=== PATIENT | female | born 1955 | race Asian ===

== ENCOUNTER 2024-10-04 13:22 | Emergency (ER) | payer MEDICAID ==
[~2024-10-04] VITALS: Ht 167.6 cm; Wt 59.0 kg
[2024-10-04 13:26] VITALS: O2SAT 100
[2024-10-04] MEDS: ONDANSETRON HCL 4MG/2ML INJ IV STA (13:58)
[2024-10-04 14:03] LABS: BASOPHILS % 0.2 % (0.0-2.0); EOSINOPHILS % 0.4 % (0.0-5.0); HEMATOCRIT. 43.1 % (36.0-48.0); LYMPHOCYTES % 16.9 % (20.0-50.0); MEAN CORPUSCULAR HEMOGLOBIN 31.5 pg (28.0-32.0); MEAN CORPUSCULAR HGB CONC 32.4 g/dL (31.0-37.0); MEAN CORPUSCULAR VOLUME 97.3 fL (81.0-99.0); MEAN PLATELET VOLUME 7.3 fl (7.4-10.4); MONOCYTES % 2.9 % (2.0-8.0); NEUTROPHILS % 79.6 % (40.0-76.0); PLATELET 244 x1000/uL (130-400); RED BLOOD CELL COUNT 4.43 mill/uL (4.2-5.4); RED CELL DISTRIBUTION WIDTH 12.9 % (11.6-14.6); WHITE BLOOD COUNT 9.2 x1000/uL (4.5-11.0)
[2024-10-04] MEDS: MECLIZINE 25MG TABLET PO ONE (14:03)
[2024-10-04 14:07] LABS: INR 0.9; PROTHROMBIN TIME 10.1 sec (9.6-11.0)
[2024-10-04 14:09] LABS: CARBON DIOXIDE 23 mEq/L (21-32); CHLORIDE 106 mEq/L (98-107); POTASSIUM 3.5 mEq/L (3.5-5.1); SODIUM 138 mEq/L (136-145)
[2024-10-04 14:14] LABS: CREATININE 0.7 mg/dL (0.6-1.0)
[2024-10-04 14:15] LABS: GLUCOSE 168 mg/dL (70-105); UREA NITROGEN BLOOD 14 mg/dL (9-23)
[2024-10-04 14:16] LABS: ALANINE AMINOTRANSFERASE 22 IU/L (10-49); ALBUMIN 4.2 g/dL (3.2-4.8); ASPARTATE AMINOTRANSFERASE 21 IU/L (<34)
[2024-10-04 14:17] LABS: BILIRUBIN DIRECT 0.3 mg/dL (<=3.0); BILIRUBIN TOTAL 1.3 mg/dL (0.1-1.0); TROPONIN I HIGH SENSITIVITY < 4 ng/L (3.0-34)
[2024-10-04 18:17] LABS: CLARITY URINE CLEAR (CLEAR); COLOR URINE YELLOW (YELLOW); GLUCOSE URINE NEGATIVE (NEGATIVE); KETONES URINE NEGATIVE (NEGATIVE); LEUKOCYTE ESTERASE URINE NEGATIVE (NEGATIVE); NITRITE URINE NEGATIVE (NEGATIVE); OCCULT BLOOD URINE TRACE (NEGATIVE); PH URINE 6.5 (4.5-8.0); PROTEIN URINE NEGATIVE (NEGATIVE); SPECIFIC GRAVITY URINE 1.017 (1.005-1.030); UROBILINOGEN URINE 0.2 E.U./dL (0.2-1.0)
[2024-10-04 18:29] LABS: BACTERIA URINE TRACE; RBC URINE 0-2 /hpf (0-2); SQUAMOUS EPITHELIAL CELL URINE FEW /lpf (RARE/1+); WBC URINE 0-2 /hpf (0-2)
[2024-10-04 18:32] VITALS: TEMP 36.7
[2024-10-04] MEDS ORDERED: TAMS-54 PO (22:01)
[2024-10-04 22:18] VITALS: BP 136/79; PULSE 85; RESP 15; O2SAT 97
== END 2024-10-04 22:40 | disposition home or self-care (01) ==
LOC: ER 13:22
DX: N20.0 Calculus of kidney (principal); R51.9 Headache, unspecified; R31.9 Hematuria, unspecified
CPT/HCPCS: 99285; 70450; 96374; 71045; 80076; 80048; 81003; 83690; 85025; 85610; 84484; 36415; 74176; 93005; J8597; J2405